=== PATIENT | male | born 1980 ===

== ENCOUNTER 2018-08-08 16:16 | Outpatient (CLI) | payer OTHER | END 2018-08-08 16:17 | disposition home or self-care (01) | LOC: C.LAB 16:16 | DX: Z00.01 Encounter for general adult medical examination with abnormal findings (principal) ==

== ENCOUNTER 2018-08-15 07:18 | Outpatient (CLI) | payer OTHER | END 2018-08-15 07:19 | disposition home or self-care (01) | LOC: C.CARD 07:18 | DX: R07.9 Chest pain, unspecified (principal) ==